=== PATIENT | female | born 1965 | race Caucasian/White ===

== ENCOUNTER 2017-02-16 08:01 | Emergency (ER) | payer OTHER ==
[2017-02-16 08:28] VITALS: BP 119/78
--- NOTE | 2017-02-16 08:36 | UC ---
Complaint Female HPI - HPI Summary HPI Summary: complaint of pain with urination that started 2 daysa go increased frequency and urgency urine is foul smelling blood in urine currently seeing Dr Saravia urologist for frequent UTI denies vaginal discharge, fever, abdmonial pain, n]back pain last UTI 11/2016- took cipro taking pyridium - History Of Current Complaint Chief Complaint: UCGU Stated Complaint: URINARY COMPLAINT Time Seen by Provider: 02/16/17 08:20 Hx Obtained From: Patient Hx Last Menstrual Period: n/a Onset/Duration: Sudden Onset Associated Signs And Symptoms: Positive: Negative - Allergies/Home Medications Allergies/Adverse Reactions: Allergies Allergy/AdvReac Type Severity Reaction Status Date / Time Bee Venom Allergy Severe Swelling Verified 02/16/17 08:23 Clarithromycin [From Biaxin] AdvReac Unknown Vomiting Verified 02/16/17 08:23 Codeine AdvReac Vomiting Verified 02/16/17 08:23 Home Medications: Home Medications Phenazopyridine HCl [Uristat] 190 mg PO TID PRN 02/16/17 [History Confirmed ] PMH/Surg Hx/FS Hx/Imm Hx Previously Healthy: Yes - frequent UTI's Endocrine History Of: Denies: Diabetes GI/ History Of: Denies: Gastroesophageal Reflux Psychological History Of: Reports: Anxiety - Surgical History Surgical History: Yes Surgery Procedure, Year, and Place: Uterine Ablation, 2011 - Family History Known Family History: Negative: Cardiac Disease, Hypertension, Diabetes, Renal Disease - Social History Occupation: Employed Full-time Lives: With Family Alcohol Use: Rare Substance Use Type: None Smoking Status (MU): Never Smoked Tobacco - Immunization History Most Recent Influenza Vaccination: Not the Season Review of Systems Constitutional: Negative Skin: Negative Eyes: Negative ENT: Negative Respiratory: Negative Cardiovascular: Negative Gastrointestinal: Negative Genitourinary: Dysuria, Hematuria, Frequency, Urgency Motor: Negative Neurovascular: Negative Musculoskeletal: Negative Neurological: Negative Psychological: Negative All Other Systems Reviewed And Are Negative: Yes Physical Exam Triage Information Reviewed: Yes Appearance: No Pain Distress, Well-Nourished Vital Signs: Initial Vital Signs Temp 97.8 F 02/16/17 08:21 Pulse 70 02/16/17 08:21 Resp 16 02/16/17 08:21 BP 119/78 02/16/17 08:21 Pulse Ox 99 02/16/17 08:21 Vital Signs Reviewed: Yes Eyes: Positive: Conjunctiva Clear ENT: Positive: Pharynx normal, TMs normal. Negative: Nasal congestion Neck: Positive: No Lymphadenopathy Respiratory: Positive: Lungs clear, Normal breath sounds, No respiratory distress Cardiovascular: Positive: RRR, No Murmur, Pulses Normal Abdomen Description: Positive: Nontender, No Organomegaly, Soft. Negative: CVA Tenderness (R), CVA Tenderness (L), Distended, Guarding Bowel Sounds: Positive: Present Musculoskeletal: Positive: No Edema Neurological: Positive: Alert Psychological Exam: Normal Skin Exam: Normal Complaint Female Dx - Course Course Of Treatment: exam completed. last urine culture show suseptability to macrobid - Differential Dx/Diagnosis Differential Diagnosis/HQI/PQRI: Ureteral Stone, Urinary Tract Infection Provider Diagnoses: UTI Discharge - Discharge Plan Condition: Stable Disposition: HOME Prescriptions: Nitrofurantoin Monohyd Macro [Macrobid] 100 mg PO BID #14 cap Phenazopyridine TAB* [Pyridium 100 mg TAB*] 100 mg PO TID #6 tab Patient Education Materials: Urinary Tract Infection in Women (ED) Referrals: Yifan Hopper MD [Primary Care Provider] - Additional Instructions: Start antibiotic and pyridium as directed Increase fluids and rest Take acetaminophen for fever or pain Please review your discharge instructions. If your symptoms do not improve please call your primary care provider or return to urgent care
[2017-02-16] MEDS ORDERED: Nitrofurantoin Macrocrystals* 50 MG CAP PO ONE (08:42)
[2017-02-16] MEDS ORDERED: Phenazopyridine TAB* 100 MG PO ONE (08:43)
== END 2017-02-16 09:07 | disposition home or self-care (01) ==
LOC: UCCORT 08:01
DX: N39.0 Urinary tract infection, site not specified (principal); R31.9 Hematuria, unspecified; Z87.440 Personal history of urinary (tract) infections; Z88.1 Allergy status to other antibiotic agents; Z88.5 Allergy status to narcotic agent
CPT/HCPCS: 81003; 87077; 87086; 87186; 99212; A9270-GY; G0463

== ENCOUNTER 2017-05-21 18:34 | Emergency (ER) | payer OTHER ==
[2017-05-21 20:46] VITALS: BP 119/75
--- NOTE | 2017-05-21 21:06 | UC ---
Hand/Wrist HPI - HPI Summary HPI Summary: left swollen index finger - History Of Current Complaint Chief Complaint: UCUpperExtremity Stated Complaint: SWOLLEN INDEX FINGER-LFT Time Seen by Provider: 05/21/17 20:56 Hx Obtained From: Patient Hx Last Menstrual Period: n/a ?: No Mechanism Of Injury: unknown Onset/Duration: Sudden Onset, Lasting Days - 4, Still Present Severity Initially: Mild Severity Currently: Moderate Pain Intensity: 7 Pain Scale Used: 0-10 Numeric Character Of Pain: Throbbing Aggravating Factor(s): Movement Alleviating: Nothing Associated Signs And Symptoms: Positive: Swelling, Redness - Allergies/Home Medications Allergies/Adverse Reactions: Allergies Allergy/AdvReac Type Severity Reaction Status Date / Time Bee Venom Allergy Severe Swelling Verified 05/21/17 20:42 Clarithromycin [From Biaxin] AdvReac Unknown Vomiting Verified 05/21/17 20:42 Codeine AdvReac Vomiting Verified 05/21/17 20:42 PMH/Surg Hx/FS Hx/Imm Hx Previously Healthy: Yes - Surgical History Surgical History: Yes Surgery Procedure, Year, and Place: Uterine Ablation, 2011 - Family History Known Family History: Negative: Cardiac Disease, Hypertension, Diabetes, Renal Disease - Social History Occupation: Employed Full-time Lives: With Family Alcohol Use: Rare Substance Use Type: None Smoking Status (MU): Never Smoked Tobacco - Immunization History Most Recent Influenza Vaccination: Not the Season Review of Systems Constitutional: Negative Skin: Negative Eyes: Negative ENT: Negative Respiratory: Negative Cardiovascular: Negative Gastrointestinal: Negative Genitourinary: Negative Motor: Negative, Decreased ROM - left index finger Neurovascular: Negative Musculoskeletal: Negative, Edema - left index finger Neurological: Negative Psychological: Negative All Other Systems Reviewed And Are Negative: Yes Physical Exam Triage Information Reviewed: Yes Appearance: Well-Appearing, No Pain Distress, Well-Nourished Vital Signs: Initial Vital Signs Temp 97.8 F 05/21/17 20:36 Pulse 88 05/21/17 20:36 Resp 20 05/21/17 20:36 BP 119/75 05/21/17 20:36 Pulse Ox 98 05/21/17 20:36 Vital Signs Reviewed: Yes Eye Exam: Normal Eyes: Positive: Conjunctiva Clear ENT Exam: Normal ENT: Positive: Normal ENT inspection, Hearing grossly normal. Negative: Nasal congestion, Nasal drainage, Tonsillar swelling, Tonsillar exudate Dental Exam: Normal Neck exam: Normal Neck: Positive: Supple, Nontender Respiratory Exam: Normal Respiratory: Positive: Chest non-tender, No respiratory distress, No accessory muscle use Cardiovascular Exam: Normal Cardiovascular: Positive: RRR, Pulses Normal, Brisk Capillary Refill Musculoskeletal Exam: Other - left index finger Musculoskeletal: Positive: Strength Limited @, ROM Limited @, Edema @ Neurological Exam: Normal Psychological Exam: Normal Skin Exam: Normal Hand/Wrist Course/Dx - Course Course Of Treatment: splint, ibuprofen, keflex follow with pcp lyme serology - Differential Dx/Diagnosis Differential Diagnosis/HQI/PQRI: Cellulitis, Fracture, Tendonitis Provider Diagnoses: Cellulitis vs Tendonitis left index finger Discharge - Discharge Plan Condition: Stable Disposition: HOME Prescriptions: Cephalexin CAP* [Keflex CAP*] 500 mg PO QID #28 cap Patient Education Materials: Ibuprofen (By mouth), Cellulitis (ED), Tendinitis (ED), Warm Compress or Soak (ED) Referrals: Yifan Hopper MD [Primary Care Provider] - 5 Days
[2017-05-21] MEDS ORDERED: Cephalexin CAP* 500 MG PO ONE (21:59)
--- NOTE | 2017-05-21 22:19 | RAD ---
Indication: Tender and swollen LEFT second finger without proceeding injury. Comparison: No relevant prior exams available on the [facility] P[facility] for comparison. Technique: 3 views LEFT second finger REPORT AND IMPRESSION: Nonfocal soft tissue swelling. No conspicuous foreign body or subcutaneous emphysema. Negative for fracture, malalignment, or significant arthropathic change.
== END 2017-05-21 22:25 | disposition home or self-care (01) ==
LOC: UCCORT 18:34
DX: M79.89 Other specified soft tissue disorders (principal)
CPT/HCPCS: 73140; 86618; 99212; A9270-GY; G0463

== ENCOUNTER 2017-08-09 18:55 | Emergency (ER) | payer OTHER ==
[2017-08-09 19:21] VITALS: BP 127/77
[2017-08-09] MEDS ORDERED: predniSONE TAB* 20 MG PO ONE (19:45)
[2017-08-09] MEDS ORDERED: Famotidine TAB* 20 MG PO ONE (19:49)
--- NOTE | 2017-08-09 19:58 | UC ---
Allergic Reaction HPI - HPI Summary HPI Summary: patient was stung by 4 bees around 3pm, did take 2 benadr;y, has had anaphylaxtic reaction in the past. - History of Current Complaint Chief Complaint: UCSkin Stated Complaint: BEE STING Time Seen by Provider: 08/09/17 19:36 Hx Obtained From: Patient Hx Last Menstrual Period: NONE ?: No Onset/Duration: Sudden Onset, Lasting Hours Severity Initially: Mild Severity Currently: Mild Character: Swelling, Pruritus, Hives Aggrevating Factor(s): Heat Alleviating Factor(s): Cold, Antihistamines Associated Signs And Symptoms: Positive: Other: - redness and swelling - Allergies/Home Medications Allergies/Adverse Reactions: Allergies Allergy/AdvReac Type Severity Reaction Status Date / Time Bee Venom Allergy Severe Swelling Verified 08/09/17 19:22 Clarithromycin [From Biaxin] AdvReac Unknown Vomiting Verified 08/09/17 19:22 Codeine AdvReac Vomiting Verified 08/09/17 19:22 Home Medications: Home Medications Diphenhydramine HCl [Benadryl Allergy 25 MG TAB] 50 mg PO Q6H PRN 08/09/17 [ History Confirmed 08/09/17] PMH/Surg Hx/FS Hx/Imm Hx Previously Healthy: Yes - Surgical History Surgical History: Yes Surgery Procedure, Year, and Place: Uterine Ablation, 2011 - Family History Known Family History: Negative: Cardiac Disease, Hypertension, Diabetes, Renal Disease - Social History Alcohol Use: Rare Substance Use Type: None Smoking Status (MU): Never Smoked Tobacco - Immunization History Most Recent Influenza Vaccination: Not the Season Review of Systems Constitutional: Negative Skin: Other - redness and swelling Eyes: Negative ENT: Negative Respiratory: Negative Cardiovascular: Negative Genitourinary: Negative Motor: Negative Neurovascular: Negative Musculoskeletal: Negative Neurological: Negative Psychological: Negative Is Patient Immunocompromised?: No All Other Systems Reviewed And Are Negative: Yes Physical Exam Triage Information Reviewed: Yes Appearance: Well-Appearing, Well-Nourished, Pain Distress Vital Signs: Initial Vital Signs Temp 98.5 F 08/09/17 19:12 Pulse 79 08/09/17 19:12 Resp 16 08/09/17 19:12 BP 127/77 08/09/17 19:12 Pulse Ox 98 08/09/17 19:12 Vital Signs Reviewed: Yes Eye Exam: Normal Eyes: Positive: Conjunctiva Clear ENT: Positive: Pharyngeal erythema, TMs normal Dental Exam: Normal Neck exam: Normal Neck: Positive: Supple, Nontender, No Lymphadenopathy Respiratory Exam: Normal Respiratory: Positive: Chest non-tender, Lungs clear, Normal breath sounds Cardiovascular Exam: Normal Cardiovascular: Positive: RRR, No Murmur, Pulses Normal Abdominal Exam: Normal Abdomen Description: Positive: Nontender, No Organomegaly, Soft Bowel Sounds: Positive: Present Musculoskeletal Exam: Normal Musculoskeletal: Positive: Strength Intact, ROM Intact, No Edema Neurological Exam: Normal Neurological: Positive: Alert, Muscle Tone Normal Psychological Exam: Normal Skin: Positive: Other - large red area on inner right thigh, 2 on the hip and one on the stomach, Allergic Reaction Course/Dx - Course Course Of Treatment: hx obtained, exam performed, meds reviewed, given meds for allergic reaction - Differential Dx/Diagnosis Differential Diagnosis/HQI/PQRI: Airway Obstruction, Anaphylaxis, Bronchospasm, Local Allergic Reaction, Urticaria Provider Diagnoses: loaclized allergic reaction of bee stings Discharge - Discharge Plan Condition: Stable Disposition: HOME Prescriptions: Epinephrine [Epipen 2-Yunior] 0.3 mg IM ONCE #1 inj Famotidine TAB* [Pepcid 20 MG TAB*] 20 mg PO DAILY #7 tab predniSONE TAB* [Deltasone TAB*] 40 mg PO DAILY #14 tab Patient Education Materials: General Allergic Reaction (ED) Referrals: Yifan Hopper MD [Primary Care Provider] - Additional Instructions: 1. take the medication as prescribed. 2. COntinue with benadryl as needed 3. Follow up with any worsening respiratory symptoms, increased redness or swelling
== END 2017-08-09 20:04 | disposition home or self-care (01) ==
LOC: UCCORT 18:55
DX: T63.441A Toxic effect of venom of bees, accidental (unintentional), initial encounter (principal); X58.XXXA Exposure to other specified factors, initial encounter; Z88.5 Allergy status to narcotic agent; Z88.1 Allergy status to other antibiotic agents
CPT/HCPCS: 99212; A9270-GY; G0463; J7512

== ENCOUNTER 2017-08-13 09:07 | Emergency (ER) | payer OTHER ==
[2017-08-13 09:24] VITALS: BP 104/65
--- NOTE | 2017-08-13 09:47 | UC ---
Skin Complaint HPI - HPI Summary HPI Summary: SEEN HER ON 08/09/17 FOR BEE STINGS. ONE ON UPPER LEFT THIGH , ONE ON RIGHT HIP AND STOMACH. DOES NOT FEEL LIKE THEY ARE IMPROVING. BITES CONTINUE TO BE ITCHY AND NOW THEY FEEL WARM. She is having significant itching. No fever. No spreading of the redness. No discharge. No SOB , LUKE or CP [ End ] - History of Current Complaint Chief Complaint: UCSkin Time Seen by Provider: 08/13/17 09:40 Stated Complaint: RE-CHECK BEE STING Hx Obtained From: Patient Hx Last Menstrual Period: NONE Onset/Duration: Sudden Onset Onset Severity: Mild Current Severity: None Character: Pruritus Associated Signs & Symptoms: Positive: Negative Related History: Possible Reaction to: Insect - Allergy/Home Medications Allergies/Adverse Reactions: Allergies Allergy/AdvReac Type Severity Reaction Status Date / Time Bee Venom Allergy Severe Swelling Verified 08/13/17 09:18 Clarithromycin [From Biaxin] AdvReac Unknown Vomiting Verified 08/13/17 09:18 Codeine AdvReac Vomiting Verified 08/13/17 09:18 Review of Systems Constitutional: Negative Skin: Negative, Other - bee stings Eyes: Negative ENT: Negative Respiratory: Negative Cardiovascular: Negative Gastrointestinal: Negative Genitourinary: Negative Motor: Negative Neurovascular: Negative Musculoskeletal: Negative Neurological: Negative Psychological: Negative All Other Systems Reviewed And Are Negative: Yes PMH/Surg Hx/FS Hx/Imm Hx Previously Healthy: Yes - Surgical History Surgical History: Yes Surgery Procedure, Year, and Place: Uterine Ablation, 2011 - Family History Known Family History: Negative: Cardiac Disease, Hypertension, Diabetes, Renal Disease - Social History Occupation: Employed Full-time Alcohol Use: Rare Substance Use Type: None Smoking Status (MU): Never Smoked Tobacco - Immunization History Most Recent Influenza Vaccination: Not the Season Physical Exam Triage Information Reviewed: Yes Appearance: Well-Appearing, No Pain Distress, Well-Nourished Vital Signs: Initial Vital Signs Temp 98.3 F 08/13/17 09:20 Pulse 77 08/13/17 09:20 Resp 16 08/13/17 09:20 BP 104/65 08/13/17 09:20 Pulse Ox 98 08/13/17 09:20 Vital Signs Reviewed: Yes Eye Exam: Normal ENT Exam: Normal Neck exam: Normal Respiratory Exam: Normal Cardiovascular Exam: Normal Neurological Exam: Normal Psychological Exam: Normal Skin: Positive: Other - left inner thigh with macular red lesion 2x2 cm, no fluctuance or drainage. also on the right lateral hip with 1x1 cm macular red urticarial type lesion Course/Dx - Course Course Of Treatment: No acute concerns for cellulitis, no fever, raised spreading redness, but if spreads tomorrow and any concerns can call office tomorrow evening and I can send in antibiotics but otherwise no acute concerns and treat supportively with steroids and creams - Diagnoses Provider Diagnoses: bee sting left leg and right hip Discharge - Discharge Plan Condition: Good Disposition: HOME Prescriptions: Triamcinolone 0.1% CREAM(NF) [Kenalog Cream 0.1%(NF)] 1 applic TOPICAL TID #1 tube Patient Education Materials: Insect Bite or Sting (ED) Referrals: Yifan Hopper MD [Primary Care Provider] - If Needed
== END 2017-08-13 10:05 | disposition home or self-care (01) ==
LOC: UCCORT 09:07
DX: T63.441D Toxic effect of venom of bees, accidental (unintentional), subsequent encounter (principal); R21 Rash and other nonspecific skin eruption; Z88.5 Allergy status to narcotic agent; Z88.1 Allergy status to other antibiotic agents; Z91.030 Bee allergy status
CPT/HCPCS: 99211; G0463

== ENCOUNTER 2017-11-01 16:40 | Emergency (ER) | payer OTHER ==
[2017-11-01 17:15] VITALS: BP 118/70
--- NOTE | 2017-11-01 17:24 | UC ---
Throat Pain/Nasal [place] HPI - HPI Summary HPI Summary: Pt c/o nasal congestion, fever, chills, sinus pressure and pain, X 2 weeks. - History of Current Complaint Chief Complaint: UCRespiratory Stated Complaint: SINUS Time Seen by Provider: 11/01/17 17:10 Hx Obtained From: Patient Hx Last Menstrual Period: NONE ?: No Onset/Duration: Gradual Onset, Lasting Weeks - 2, Still Present Severity: Moderate Associated Signs & Symptoms: Positive: Sinus Discomfort - Allergies/Home Medications Allergies/Adverse Reactions: Allergies Allergy/AdvReac Type Severity Reaction Status Date / Time Bee Venom Allergy Severe Swelling Verified 11/01/17 17:10 Clarithromycin [From Biaxin] AdvReac Unknown Vomiting Verified 11/01/17 17:10 Codeine AdvReac Vomiting Verified 11/01/17 17:10 Home Medications: Home Medications Epinephrine [Epipen 2-Yunior] 0.3 mg IM 11/01/17 [History] PMH/Surg Hx/FS Hx/Imm Hx Previously Healthy: Yes - Surgical History Surgical History: Yes Surgery Procedure, Year, and Place: Uterine Ablation, 2011 - Family History Known Family History: Negative: Cardiac Disease, Hypertension, Diabetes, Renal Disease - Social History Occupation: Employed Full-time Lives: With Family Alcohol Use: None Substance Use Type: None Smoking Status (MU): Never Smoked Tobacco Have You Smoked in the Last Year: No - Immunization History Most Recent Influenza Vaccination: 2017 Vaccination Up to Date: Yes Review of Systems Constitutional: Fever, Chills, Fatigue Skin: Negative Eyes: Negative ENT: Sinus Congestion, Sinus Pain/Tenderness Respiratory: Cough Cardiovascular: Negative Gastrointestinal: Negative Genitourinary: Negative Motor: Negative Neurovascular: Negative Musculoskeletal: Negative Neurological: Headache Psychological: Negative Is Patient Immunocompromised?: No All Other Systems Reviewed And Are Negative: Yes Physical Exam Triage Information Reviewed: Yes Appearance: Ill-Appearing Vital Signs: Initial Vital Signs Temp 98.4 F 11/01/17 17:11 Pulse 76 11/01/17 17:11 Resp 16 11/01/17 17:11 BP 118/70 11/01/17 17:11 Pulse Ox 98 11/01/17 17:11 Vital Signs Reviewed: Yes Eye Exam: Normal ENT Exam: Other ENT: Positive: Nasal congestion, Sinus tenderness Dental Exam: Normal Neck exam: Normal Respiratory Exam: Normal Cardiovascular Exam: Normal Musculoskeletal Exam: Normal Neurological Exam: Normal Psychological Exam: Normal Skin Exam: Normal Throat Pain/Nasal Course/Dx - Differential Dx/Diagnosis Differential Diagnosis/HQI/PQRI: Sinusitis, URI Provider Diagnoses: sinusitis Discharge - Discharge Plan Condition: Stable Disposition: HOME Prescriptions: Amoxicillin PO (*) [Amoxicillin 875 MG (*)] 875 mg PO Q12H #20 tab Pseudoephedrine-Guaifenesin [Mucinex D 60-600 mg] 1 tab PO DAILY #10 tab Patient Education Materials: Sinusitis (ED) Referrals: Yifan Hopper MD [Primary Care Provider] - If Needed
== END 2017-11-01 17:30 | disposition home or self-care (01) ==
LOC: UCCORT 16:40
DX: J32.9 Chronic sinusitis, unspecified (principal); Z88.5 Allergy status to narcotic agent; Z88.4 Allergy status to anesthetic agent; Z91.030 Bee allergy status
CPT/HCPCS: 99212; G0463

== ENCOUNTER 2018-01-27 07:13 | Emergency (ER) | payer OTHER ==
[2018-01-27 07:43] VITALS: BP 118/73
--- NOTE | 2018-01-27 08:21 | UC ---
Complaint Female HPI - HPI Summary HPI Summary: She has hx of frequent UTi and these symptoms feel typical for her. macrobid has helped in the past. She is followed by Dr. Piña who has done a lot of testing. She has had dysuria, frequency and urgency. No fevers or vomiting. - History Of Current Complaint Chief Complaint: UCGU Stated Complaint: URINARY Time Seen by Provider: 01/27/18 07:17 Hx Obtained From: Patient Hx Last Menstrual Period: NONE Onset/Duration: Gradual Onset, Lasting Days Timing: Constant Severity Initially: Moderate Severity Currently: Moderate Pain Intensity: 7 Character: Sharp, Burning Aggravating Factor(s): Urination Alleviating Factor(s): Nothing Associated Signs And Symptoms: Positive: Negative Related Hx: Similar Episode/Dx as: - UTI. - Allergies/Home Medications Allergies/Adverse Reactions: Allergies Allergy/AdvReac Type Severity Reaction Status Date / Time bee venom protein (honey bee) Allergy Swelling Verified 01/27/18 07:36 clarithromycin Allergy Vomiting Verified 01/27/18 07:36 codeine Allergy Vomiting Verified 01/27/18 07:36 Home Medications: Home Medications Uricalm 2 tab PO ONCE PRN 01/27/18 [History] PMH/Surg Hx/FS Hx/Imm Hx Previously Healthy: No - frequency uti. - Surgical History Surgical History: Yes Surgery Procedure, Year, and Place: Uterine Ablation, 2011 - Family History Known Family History: Negative: Cardiac Disease, Hypertension, Diabetes, Renal Disease - Social History Lives: With Family Alcohol Use: None Substance Use Type: None Smoking Status (MU): Never Smoked Tobacco Have You Smoked in the Last Year: No - Immunization History Most Recent Influenza Vaccination: 2017 Vaccination Up to Date: Yes Review of Systems Genitourinary: Dysuria, Frequency All Other Systems Reviewed And Are Negative: Yes Physical Exam Triage Information Reviewed: Yes Appearance: Well-Appearing, No Pain Distress, Well-Nourished Vital Signs: Initial Vital Signs Temp 98.5 F 01/27/18 07:38 Pulse 86 01/27/18 07:38 Resp 16 01/27/18 07:38 BP 118/73 01/27/18 07:38 Pulse Ox 96 01/27/18 07:38 Vital Signs Reviewed: Yes Eye Exam: Normal Eyes: Positive: Conjunctiva Clear ENT: Positive: Normal ENT inspection Neck: Positive: Supple, Nontender, No Lymphadenopathy Respiratory: Positive: Lungs clear, Normal breath sounds, No respiratory distress, No accessory muscle use. Negative: Respiratory distress, Decreased breath sounds, Accessory muscle use, Crackles, Rhonchi, Stridor, Wheezing Cardiovascular: Positive: No Murmur, Pulses Normal Abdomen Description: Positive: No Organomegaly, Soft. Negative: CVA Tenderness (R), CVA Tenderness (L), Distended, Guarding Musculoskeletal: Positive: Strength Intact, ROM Intact, No Edema Neurological: Positive: Alert, Muscle Tone Normal. Negative: Fatigued Psychological: Positive: Age Appropriate Behavior Skin: Negative: rashes Complaint Female Dx - Differential Dx/Diagnosis Provider Diagnoses: uti Discharge - Discharge Plan Condition: Good Disposition: HOME Prescriptions: Nitrofurantoin Macrocrystals* [Macrodantin*] 100 mg PO BID #20 cap Patient Education Materials: Dysuria (ED) Referrals: Yifan Hopper MD [Primary Care Provider] -
== END 2018-01-27 08:23 | disposition home or self-care (01) ==
LOC: UCCORT 07:13
DX: N39.0 Urinary tract infection, site not specified (principal); B96.20 Unspecified Escherichia coli [E. coli] as the cause of diseases classified elsewhere; Z87.440 Personal history of urinary (tract) infections; Z88.5 Allergy status to narcotic agent; Z88.1 Allergy status to other antibiotic agents; Z91.030 Bee allergy status
CPT/HCPCS: 87077; 87086; 87186; 99212; G0463